=== PATIENT | male | born 1950 | race Caucasian/White ===

== ENCOUNTER → 2021-08-09 | Outpatient (CLI) | payer OTHER ==
[~2021-08-09] VITALS: Ht 177.8 cm; Wt 99.8 kg
[~2021-08-09] MED LIST: AMIODARONE HCL400 MG PO; ASA81BEC PO; AZELASTINE205.5 MCG/ NARES; DESYREL150 MG PO; ELIQUIS5 MG PO; FUROSEMIDE 40 M40 MG PO; SINGULAIR 10 MG10 M1 PO; TOPROL XL100 MG PO; ZOCOR 20 MG TAB20 M1 PO
[2021-08-09 07:37] LABS: BASOPHILS 1.3 % (0.0-2.0); EOSINOPHILS 4.2 % (0.0-3.0); HEMATOCRIT 44.5 % (42.0-52.0); HEMOGLOBIN 15.2 gm/dL (14.0-18.0); LYMPHOCYTES 24.3 % (24.0-44.0); MCH 32.7 pg (26.0-34.0); MCHC 34.2 g/dL (28.0-37.0); MCV 95.5 fL (80.0-100.0); MONOCYTES 13.7 % (1.0-8.0); PLATELET COUNT 222 thou/uL (150-400); POLYS 56.5 % (36.0-66.0); RBC 4.66 mil/uL (4.50-6.00); RDW 13.5 % (10.5-14.5); WBC 5.3 thou/uL (4.0-11.0)
[2021-08-09 07:43] VITALS: BP 113/92
[2021-08-09 07:51] LABS: CALCIUM 8.8 mg/dL (8.5-10.1); CREATININE 1.1 mg/dL (0.7-1.3); POTASSIUM 3.8 mmol/L (3.5-5.1)
[2021-08-09 07:57] LABS: ALBUMIN 3.4 g/dL (3.4-5.0); TOTAL BILIRUBIN 0.5 mg/dL (0.2-1.0); TOTAL PROTEIN 7.3 g/dL (6.4-8.2)
[2021-08-09 07:59] LABS: APTT 28.6 Seconds (24.5-32.8); INR 1.05; PROTIME 11.4 Seconds (10.5-12.1)
--- NOTE | 2021-08-23 08:48 | P ---
[facility] [place] [address] PROCEDURE REPORT Name: LILLIE SANDY Room #: REG DAVID Germán#: [id number] Admission: 08/09/21 Attend Phys: Remigio Mayer MD Discharge: Date of : 50 Report #: [id number] THIS REPORT FOR: cc: Deni Mcdaniel MD, Terry A. MD Couchonnal, Luis F. MD ~ DATE OF SERVICE: 08/09/2021 ABLATION PROCEDURES PERFORMED: 1. Atrial ablation, CPT code 58977. 2. 3D mapping, CPT code 09435. 3. Intracardiac echo, CPT code 77720. 4. Focal ablation atrial fibrillation-- CPT code 54749. 5. Focal ablation of atrial flutter, CPT code 08368. HISTORY: The patient is a 70-year-old male with history of AFib, here for ablation. DESCRIPTION OF PROCEDURE: The patient was brought to the EP laboratory in a fasting and sedated state, prepped and draped in a standard fashion, obtained access to the right femoral vein x 3, placing an 8, 9 and 7-Wallisian short sheath using modified Seldinger technique. Under fluoroscopy, a decapolar catheter was attempted to be placed in the coronary sinus. This would not sit in the CS throughout the case. ICE catheter was placed in the right atrium. Intracardiac ultrasound images were performed. The patient was systemically heparinized and transseptal was performed using an SL1 sheath and a Yarnell needle, which was straightforward. I then exchanged the SL1 sheath for the cryosheath, placed the Lasso catheter in the left atrium and created the 3D geometry of the left atrium and then we started isolating the pulmonary veins. Left superior pulmonary vein underwent a 3-minute freeze isolating at 42 seconds. Left inferior pulmonary vein underwent a 4-minute freeze which resulted in isolation. Right superior pulmonary vein underwent a 3-minute freeze and isolated at 24 seconds. The right inferior pulmonary vein underwent a 3-minute freeze followed by a 4-minute freeze which resulted in isolation, but then it reconnected. Two other attempts were made, which were unsuccessful in isolating the vein and then final freeze of 300 seconds resulted in isolation at 110 seconds. POSTERIOR WALL ISOLATION: The patient was then prepped for posterior wall isolation. I performed 6 posterior wall freezes, each of 3 minutes duration. There was never any compromise to have esophageal temperatures. I remapped the left atrium and showed that now the pulmonary veins were isolated and the posterior wall was also isolated. Therefore, the patient underwent a 200 joule cardioversion with yazidi of sinus rhythm. [address] [address] PROCEDURE REPORT Name: LILLIE SANDY Room #: REG Jose Dunlap#: [id number] Admission: 08/09/21 Attend Phys: Remigio Mayer MD Discharge: Date of : 50 Report #: [id number] RIGHT-SIDED ATRIAL FLUTTER ABLATION: The patient was prepped for right-sided atrial flutter ablation. Ablation was performed using 8 mm ablation catheter via a ramp sheath. Ablation was performed at 70 contreras and 60 degrees until a block was achieved. There were double potentials of 110-120 milliseconds. As such, the procedure was concluded. Catheters and sheaths were pulled. Hemostasis was obtained. The patient awoke neurologically and hemodynamically intact. There was no evidence of pericardial effusion. CONCLUSION: 1. Successful AFib ablation and isolation of the pulmonary veins. 2. Successful posterior wall isolation. 3. Successful atrial flutter ablation with bidirectional block. <ELECTRONICALLY SIGNED> By: Remigio Mayer MD 08/23/21 0848 [id number] Remigio Mayer MD /nt
== END | disposition home or self-care (01) ==
LOC: CATH 06:31
PROVIDERS: ATTEND Internal Medicine Cardiovascular Disease
DX: I48.91 Unspecified atrial fibrillation (principal); I48.92 Unspecified atrial flutter; I11.0 Hypertensive heart disease with heart failure; I50.9 Heart failure, unspecified; G47.33 Obstructive sleep apnea (adult) (pediatric); Z98.890 Other specified postprocedural states; Z79.899 Other long term (current) drug therapy; Z79.01 Long term (current) use of anticoagulants
CPT/HCPCS: 62110; 62900; 65020; 65040; 70005